=== PATIENT | male | born 1970 | race Caucasian/White ===

== ENCOUNTER 2020-01-27 05:28 | Observation (INO) ==
[2020-01-27] MEDS ORDERED: 0.9 % Sodium Chloride 500 ML IVC ONE (05:35)
[2020-01-27] MEDS: Nitroglycerin 0.4 MG TAB.SUBL SL PRN ×3 (05:46→05:55)
[2020-01-27 06:04] LABS: Basophils # 0.1 K/mcL (0.0-0.2); Basophils % 0.9 %; Eosinophils # 0.1 K/mcL (0.0-0.6); Eosinophils % 1.1 %; Hematocrit 45.3 % (37.5-50.1); Hemoglobin 15.1 g/dL (12.9-16.9); Immature Granulocytes % 0.3 % (0-4); Lymphocytes # 1.2 K/mcL (0.6-4.6); Lymphocytes % 16.1 %; Mean Corpuscular HGB Conc 33.3 g/dL (31.6-35.5); Mean Corpuscular Hemoglobin 26.5 pg (28.0-33.3); Mean Corpuscular Volume 79.5 fL (83.0-100.0); Monocytes # 0.5 K/mcL (0.0-1.3); Monocytes % 7.1 %; Neutrophils # 5.7 K/mcL (1.6-8.9); Platelet Count 237 K/mcL (140-400); Red Cell Distribution Width 12.9 % (11.5-14.5); Segmented Neutrophils % 74.5 %; White Blood Count 7.6 K/mcL (4.3-11.1)
[2020-01-27 06:08] LABS: INR 0.9; Prothrombin Time 10.7 Seconds (9.4-12.1)
[2020-01-27 06:11] LABS: Activated Partial Thrombo Time 29.3 Seconds (26.0-36.0)
[2020-01-27 06:19] LABS: BUN/Creatinine Ratio 18 (6-26); Blood Urea Nitrogen 22 mg/dL (6-20); Calcium 9.3 mg/dL (8.6-10.3); Carbon Dioxide 18 mEq/L (23-29); Chloride 98 mEq/L (98-107); Glucose 430 mg/dL (70-105); Osmolality,Calculated 292 (280-300); Potassium 3.8 mEq/L (3.5-5.1); Sodium 130 mEq/L (136-145); Troponin I < 0.03 ng/mL (< 0.04); eGFR For African Americans > 60 (> 60); eGFR For Non-African Americans > 60 (> 60)
[2020-01-27] MEDS ORDERED: Isovue-370 500 ML BOTTLE IVP ONE (06:27)
[2020-01-27] MEDS ORDERED: 0.9 % Sodium Chloride 1,000 ML IVC ONE (06:29)
[2020-01-27] MEDS ORDERED: *HR* FentaNYL (PF) 100 MCG/2 ML VIAL IVP ONE (07:01)
[2020-01-27] MEDS ORDERED: Naloxone 0.4 MG/ML INJ IVP PRN (07:55)
[2020-01-27] MEDS ORDERED: Ondansetron 4 MG/2 ML VIAL IVP PRN (07:55)
[2020-01-27] MEDS ORDERED: Nitroglycerin 0.4 MG TAB.SUBL SL PRN (07:57)
[2020-01-27] MEDS ORDERED: Morphine Sulfate 2 MG/ML SYRINGE IVP PRN (07:57)
[2020-01-27] MEDS: Aspirin 81 MG TAB.CHEW PO SCH (09:11)
[2020-01-27] MEDS: 0.9 % Sodium Chloride 1,000 ML IVC SCH (09:16)
[2020-01-27] MEDS ORDERED: *HR* Dextrose 50 % in Water (Syg) 50 ML SYRINGE IVP PRN (11:27)
[2020-01-27] MEDS ORDERED: D5% in Water 1,000 ML IVC PRN (11:27)
[2020-01-27] MEDS ORDERED: Dextrose Gel 15 GM/37.5 ML TUBE PO PRN ×2 (11:27)
[2020-01-27] MEDS: Insulin LISPRO 300 UNITS/3 ML VIAL SQ SCH ×3 (12:22→20:51)
[2020-01-27] MEDS: *HR* Heparin 5,000 UNIT/ML VIAL SQ SCH ×2 (14:10→20:46)
[2020-01-27 19:34] LABS: Amphetamine Screen,Urine Negative ng/mL (Cutoff=1000); Barbiturate Screen,Urine Negative ng/mL (Cutoff=200); Benzodiazepines Screen,Urine Negative ng/mL (Cutoff=200); Cannabinoid Screen,Urine Negative ng/mL (Cutoff = 50); Cocaine Screen,Urine Positive ng/mL (Cutoff= 300); Opiate Screen,Urine Negative ng/mL (Cutoff=300); Phencyclidine Screen,Urine Negative ng/mL (Cutoff=25)
[2020-01-28] MEDS: *HR* Heparin 5,000 UNIT/ML VIAL SQ SCH ×3 (05:30→21:14)
[2020-01-28 06:05] LABS: Basophils # 0.1 K/mcL (0.0-0.2); Basophils % 1.2 %; Eosinophils # 0.3 K/mcL (0.0-0.6); Eosinophils % 3.8 %; Hematocrit 44.5 % (37.5-50.1); Hemoglobin 14.5 g/dL (12.9-16.9); Immature Granulocytes % 0.5 % (0-4); Lymphocytes # 2.2 K/mcL (0.6-4.6); Lymphocytes % 32.4 %; Mean Corpuscular HGB Conc 32.6 g/dL (31.6-35.5); Mean Corpuscular Hemoglobin 26.4 pg (28.0-33.3); Mean Corpuscular Volume 80.9 fL (83.0-100.0); Mean Platelet Volume 9.9 fL (9.4-12.4); Monocytes # 0.5 K/mcL (0.0-1.3); Monocytes % 6.8 %; Neutrophils # 3.7 K/mcL (1.6-8.9); Platelet Count 202 K/mcL (140-400); Red Cell Distribution Width 13.3 % (11.5-14.5); Segmented Neutrophils % 55.3 %; White Blood Count 6.7 K/mcL (4.3-11.1)
[2020-01-28 06:27] LABS: BUN/Creatinine Ratio 15 (6-26); Blood Urea Nitrogen 16 mg/dL (6-20); Calcium 8.7 mg/dL (8.6-10.3); Carbon Dioxide 21 mEq/L (23-29); Chloride 104 mEq/L (98-107); Chol/HDL Ratio 5.7 (0-4.9); Cholesterol 200 mg/dL (< 200); Glucose 296 mg/dL (70-105); HDL Cholesterol 35 mg/dL (40-59); LDL Cholesterol,Calculated 110 mg/dL (0-99); Osmolality,Calculated 288 (280-300); Sodium 133 mEq/L (136-145); Triglycerides 273 mg/dL (< 150); eGFR For African Americans > 60 (> 60); eGFR For Non-African Americans > 60 (> 60)
[2020-01-28 09:57] LABS: Estimated Average Glucose 367 mg/dl
[2020-01-28] MEDS: Aspirin 81 MG TAB.CHEW PO SCH (11:03)
[2020-01-28] MEDS: 0.9 % Sodium Chloride 1,000 ML IVC SCH (11:04)
[2020-01-28] MEDS: Insulin LISPRO 300 UNITS/3 ML VIAL SQ SCH ×3 (11:11→21:13)
[2020-01-28] MEDS: Insulin DETEMIR 100 UNIT/ML X5UNITS SQ SCH (13:03)
[2020-01-28] MEDS ORDERED: Aspirin 81 MG TAB.CHEW PO ONE (15:11)
[2020-01-28] MEDS: Colchicine 0.6 MG TABLET PO SCH (17:02)
[2020-01-29] MEDS: *HR* Heparin 5,000 UNIT/ML VIAL SQ SCH (07:11)
[2020-01-29] MEDS: Colchicine 0.6 MG TABLET PO SCH (08:47)
[2020-01-29] MEDS: Insulin DETEMIR 100 UNIT/ML X5UNITS SQ SCH (08:47)
[2020-01-29] MEDS: Insulin LISPRO 300 UNITS/3 ML VIAL SQ SCH ×2 (08:48→12:22)
[2020-01-29] MEDS ORDERED: Aspirin 325 MG TABLET PO SCH (09:00)
[2020-01-29 10:39] VITALS: BP 124/71
[2020-01-29 12:03] LABS: C-Reactive Protein < 5 mg/L (Less than 10)
== END 2020-01-29 13:39 | disposition home or self-care (01) ==
LOC: 3BNU 05:28 → EMEROOARM 05:28 → SUATTDRO 08:17 → 3BNU 09:18
PROVIDERS: ADMIT Family Medicine; ATTEND Internal Medicine